=== PATIENT | male | born 1980 | race Caucasian/White ===

== ENCOUNTER 2022-05-28 22:19 | Emergency (ER) | payer MEDICAID ==
[~2022-05-28] VITALS: Ht 180.3 cm; Wt 86.2 kg
[~2022-05-28 22:19] MED LIST: FAMO-128 PO; FOLI1TAB27 PO; epiNEPHrine 0.1mg/ml 10ml syringe ONE; rocuronium 10mg/ml inj IV ONE
[2022-05-28] MEDS ORDERED: ketamine 50 mg/ml 10ml vial ONE (22:26)
--- NOTE | 2022-05-28 22:40 | NUR ---
RT IN WITH PT. AMBU BAG PLACED FOR SPO2 AT 61% .
[2022-05-28] MEDS ORDERED: iohexol 350MG/ML 100ml bottle IV ONE (22:43)
[2022-05-28 22:46] LABS: ABG BASE EXCESS -2.4 mmol/L (-2.0-2.0); ABG HCO3 24.8 mmol/L (22.0-26.0); ABG OXYGEN SATURATION 99.2 % (94-97); ABG PCO2 (T) 53.1 mmHg (35.0-48.0); ABG PO2 (T) 370.7 mmHg (75.0-100.0); FLOW 15 L/min; FMetHb 0.1 % (0.0-1.5); FO2Hb 97.1 % (94-97); TOTAL HEMOGLOBIN 13.1 G/dl (14.0-18.0)
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
[2022-05-28] MEDS ORDERED: CefTRIAXone 2gm/D5W 50ml BAG 50 ML IV ONE (23:01)
[2022-05-28] MEDS ORDERED: tranexamic acid 1gm/0.7% sal. 100 ML IV ONE (23:15)
--- NOTE | 2022-05-28 23:15 | NUR ---
RIGHT CHEST TUBE INSERTD BY DR. GONZALES.
[2022-05-28] MEDS ORDERED: CefTRIAXone 2gm/D5W 50ml IV ONE (23:20)
[2022-05-28] MEDS ORDERED: propofol 1000mg/100ml bottle 100 ML IV ONE (23:24)
[2022-05-28 23:35] VITALS: BP 131/82
[2022-05-28 23:46] LABS: BASOPHILS # (AUTO) 0.1 X10'3 (0-0.2); BASOPHILS % (AUTO) 0.6 % (0-1); EOSINOPHILS # (AUTO) 0.9 X10'3 (0-0.9); EOSINOPHILS % (AUTO) 8.8 % (0-6); HEMATOCRIT 42.1 % (42.0-52.0); HEMOGLOBIN 13.9 g/dl (14.0-17.9); LYMPHOCYTES # (AUTO) 4.3 X10'3 (1.1-4.8); LYMPHOCYTES % (AUTO) 42.9 % (21-51); MEAN CORPUSCULAR HEMOGLOBIN 29.1 PG (27.0-31.0); MEAN CORPUSCULAR VOLUME 88.3 FL (78-98); MEAN PLATELET VOLUME 8.8 FL (7.4-10.4); MONOCYTES # (AUTO) 0.8 X10'3 (0-0.9); MONOCYTES % (AUTO) 7.8 % (2-12); NEUTROPHILS % (AUTO) 39.9 % (42-75); PLATELET COUNT 296 X10'3 (140-440); RED BLOOD COUNT 4.77 X10'6 (4.70-6.10); RED CELL DISTRIBUTION WIDTH 14.6 % (11.5-14.5); WHITE BLOOD COUNT 9.9 X10'3 (4.5-11.0)
[2022-05-28 23:47] LABS: APTT 24 SECONDS (22-32)
[2022-05-28 23:48] LABS: ALANINE AMINOTRANSFERASE 36 U/L (12-78); ALBUMIN 3.3 G/DL (3.4-5.0); ALKALINE PHOSPHATASE 121 IU/L (46-116); ANION GAP 5 (8-16); ASPARTATE AMINO TRANSFERASE 31 U/L (10-37); BILIRUBIN,TOTAL 0.3 MG/DL (0.1-1.0); BLOOD UREA NITROGEN 18 MG/DL (7-18); BUN/CREATININE RATIO 12.9 (5.4-32.0); CALCIUM 8.4 MG/DL (8.5-10.1); CHLORIDE 106 MMOL/L (99-107); CREATININE 1.39 MG/DL (0.60-1.10); GLUCOSE 113 MG/DL (70-104); POTASSIUM 3.7 MMOL/L (3.5-5.1); SODIUM 142 MMOL/L (135-145); TOTAL CARBON DIOXIDE 31.1 MMOL/L (24-32); TOTAL PROTEIN 6.7 G/DL (6.4-8.2); eGFR 56 ML/MIN
[2022-05-28] MEDS ORDERED: TETanus/Pertussis (Acell)/Diphther VAC/PF (Tdap-Adult) 0.5ml syringe IMVAC ONE (23:50)
[2022-05-28 23:51] LABS: CREATINE KINASE 548 U/L (39-308)
[2022-05-28] MEDS ORDERED: ringers solution, lacted 1,000 ML IV SCH (23:55)
[2022-05-28] MEDS ORDERED: propofol 10mg/ml 20ml vial IV PRN (23:55)
--- NOTE | 2022-05-29 00:30 | NUR ---
PER DR. WHITE MTP DC AFTER 2 UNITS OF PRBC.
--- NOTE | 2022-05-29 00:30 | NUR ---
PT COMPLETED 2 UNIT OF PRBC PER MTP.
--- NOTE | 2022-05-29 00:33 | NUR ---
PT'S NIECE, SHRADDHA PASTRANA, WILL BE COMMUNITY DIETITIAN FOR INFORMATION FOR OTHER FAMILY MEMBERS.
--- NOTE | 2022-05-29 00:34 | NUR ---
[employer] REQUESTED THAT THEY BE CONTACTED WITH ANY UPDATES AT [phone] OR AT [phone]
[2022-05-29] MEDS: propofol 1000mg/100ml bottle 100 ML IV SCH ×3 (00:37→02:55)
--- NOTE | 2022-05-29 00:40 | NUR ---
1ST CHEST TUE DC BY DR. SÁNCHEZ. NEW CHEST TUBE WITH Y TUBE OLACED ON RIGHT CHEST WALL
[2022-05-29] MEDS ORDERED: rocuronium 10mg/ml inj IV ONE (01:20)
[2022-05-29] MEDS ORDERED: ketamine 50 mg/ml 10ml vial IV ONE (01:20)
[2022-05-29] MEDS ORDERED: midazolam 100mg in NS 100ml 100 ML IV SCH (01:45)
[2022-05-29 01:47] LABS: ABG BASE EXCESS -2.3 mmol/L (-2.0-2.0); ABG HCO3 26.2 mmol/L (22.0-26.0); ABG OXYGEN SATURATION 92.6 % (94-97); ABG PCO2 (T) 60.6 mmHg (35.0-48.0); ABG PO2 (T) 71.8 mmHg (75.0-100.0); ALLEN'S TEST POSITIVE; FCOHb 1.4 % (0.0-3.9); FMetHb 0.1 % (0.0-1.5); FO2Hb 91.2 % (94-97); PEEP 5 cm H2O; RESPIRATORY RATE 12 b/min; TIDAL VOLUME 450 mL; TOTAL HEMOGLOBIN 15.2 G/dl (14.0-18.0)
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
[2022-05-29 02:02] LABS: CLARITY,URINE CLEAR (Clear); COLOR,URINE YELLOW (Yellow); GLUCOSE, URINE NEGATIVE (Neg); KETONES,URINE NEGATIVE (Neg); LEUKOCYTE ESTERASE ,URINE NEGATIVE (Neg); NITRITES, URINE NEGATIVE (Neg); OCCULT BLOOD,URINE NEGATIVE (Neg); PH,URINE 5.5 (4.8-8.0); PROTEIN,URINE NEGATIVE (Neg); UROBILINOGEN,URINE 0.2 E.U/dL (0.2-1.0)
[2022-05-29 02:03] LABS: UA COLLECTION TYPE NON-SPECIFIED
--- NOTE | 2022-05-29 02:20 | NUR ---
PT ACCEPTED AT [facility] FOR FURTHER TRUAMA SERVICE
--- NOTE | 2022-05-29 02:28 | NUR ---
REPORT GIVEN TO ENLINE ER GLAZIER [employer] GLASS JEN. JARVIS FLIGHT CREW AT BEDSIDE.
[2022-05-29] MEDS ORDERED: fentaNYL/PF 50MCG/1 ML 2ML syringe IV ONE (02:30)
--- NOTE | 2022-05-29 02:40 | NUR ---
REPORT GIVEN TO ENLINE FLIGHT CREW
[2022-05-29 03:36] VITALS: BP 121/69
[2022-05-30] MEDS ORDERED: mineral oil/petrolatum ophthal oint EACHEYE SCH (02:00)
== END 2022-05-29 03:43 | disposition short-term general hospital (02) ==
LOC: EEVIPCON 22:19 → ER 22:19
DX: S21.301A Unspecified open wound of right front wall of thorax with penetration into thoracic cavity, initial encounter (principal); Z98.890 Other specified postprocedural states; W33.01XA Accidental discharge of shotgun, initial encounter; Y93.89 Activity, other specified; Y92.89 Other specified places as the place of occurrence of the external cause; Y99.8 Other external cause status
CPT/HCPCS: 31500; 36415; 36430; 36600; 71045; 71260; 74177; 80053; 81003; 82550; 82803; 84484; 85018; 85025; 85610; 85730; 86885; 86900; 86901; 86920; 87070; 90471; 90715; 94002; 94799; 96361; 96365; 96368; 99291; 99292; J0171; J0696; J2704; J3010; J3490; J7030; J7120; P9016; Q9967; A4649; A6449; A7048